=== PATIENT | female | born 1985 | race Caucasian/White ===

== ENCOUNTER 2016-10-07 11:57 | Emergency (ER) | payer OTHER ==
[2016-10-07 13:41] LABS: BASOPHIL 0.1 % (0-2); BILIRUBIN 1+ mg/dL (NEGATIVE); BLOOD TRACE-INTACT Ery/uL (NEGATIVE); CLARITY CLEAR (CLEAR); COLOR YELLOW (YELLOW); EOSINOPHIL 0 % (0-5); GLUCOSE (U) NORMAL (NORMAL); HCT 42.9 % (37.0-47.0); HGB 14.5 g/dl (12.5-16.0); KETONE (U) 2+ (MODERATE) mg/dL (NEGATIVE); LEUKOCYTES NEGATIVE Leu/uL (NEGATIVE); MCHC 33.8 g/dL (32.0-36.0); MCV 85.8 fL (78.0-100.0); MONOCYTE 4.5 % (0-12); MPV 10.8 fL (6.0-9.5); NEUTROPHIL 85.4 % (41-80); NITRITE NEGATIVE (NEGATIVE); PLT 257 K/uL (150-400); PROTEIN 2+ mg/dL (NEGATIVE); RDW 13.2 % (11.5-14.0); SPECIFIC GRAVITY 1.025 (1.001-1.030); UROBILINOGEN 0.2 mg/dL (0.2-1.0); WBC 14.2 K/uL (4.0-10.5)
[2016-10-07 13:48] LABS: BACTERIA 2+; URINARY RBC RARE
[2016-10-07 13:49] LABS: MUCOUS LARGE
[2016-10-07 13:50] LABS: INR 0.99 (0.9-1.2); PROTHROMBIN TIME 12.7 SECONDS (11.7-14.0); PTT 23.6 SECONDS (23.2-31.4)
[2016-10-07 13:54] LABS: AMPHETAMINES NEGATIVE (NEGATIVE); BARBITURATES NEGATIVE (NEGATIVE); BENZODIAZEPINES NEGATIVE (NEGATIVE); COCAINE NEGATIVE (NEGATIVE); MARIJUANA (THC) POSITIVE (NEGATIVE); METHADONE NEGATIVE (NEGATIVE); TRICYCLIC ANTIDEPRESSANT NEGATIVE (NEGATIVE)
[2016-10-07 14:11] LABS: ALBUMIN 5.5 g/dL (3.5-5.0); BILIRUBIN - TOTAL 0.6 mg/dL (0.1-1.0); CREATININE 0.6 mg/dL (0.5-1.0); GLOBULIN (CALCULATION) 2.9 g/dL (2.2-4.2); POTASSIUM 3.6 mmol/L (3.5-5.1); TOTAL PROTEIN 8.4 g/dL (6.4-8.3)
== END 2016-10-07 16:50 | disposition home or self-care (01) ==
LOC: FER 11:57
PROVIDERS: Internal Medicine
DX: R10.9 Unspecified abdominal pain (principal); R11.2 Nausea with vomiting, unspecified; F41.9 Anxiety disorder, unspecified; E03.9 Hypothyroidism, unspecified; Z79.899 Other long term (current) drug therapy
CPT/HCPCS: 36415; 80053; 80305; 81001; 83690; 85025; 85610; 85730; C9113; J2405; Q9967

== ENCOUNTER 2016-10-08 16:24 | Emergency (ER) | payer SELFPAY | END 2016-10-08 17:16 | disposition left against medical advice (07) | LOC: FER 16:24 | DX: R10.84 Generalized abdominal pain (principal); Z53.8 Procedure and treatment not carried out for other reasons ==

== ENCOUNTER 2016-12-12 05:43 | Emergency (ER) | payer OTHER ==
[2016-12-12 06:47] LABS: FT4 (FREE T4) 1.03 ng/dL (0.93-1.70); TSH (THYROID STIM HORMONE) 0.806 uIU/mL (0.270-4.200)
[2016-12-12 07:24] LABS: BILIRUBIN 1+ mg/dL (NEGATIVE); BLOOD TRACE-LYSED Ery/uL (NEGATIVE); CLARITY CLEAR (CLEAR); COLOR YELLOW (YELLOW); GLUCOSE (U) NORMAL (NORMAL); KETONE (U) 2+ (MODERATE) mg/dL (NEGATIVE); LEUKOCYTES NEGATIVE Leu/uL (NEGATIVE); NITRITE NEGATIVE (NEGATIVE); PROTEIN 2+ mg/dL (NEGATIVE); UROBILINOGEN 0.2 mg/dL (0.2-1.0)
[2016-12-12 07:37] LABS: BACTERIA 1+
[2016-12-12 07:38] LABS: AMPHETAMINES NEGATIVE (NEGATIVE); BARBITURATES NEGATIVE (NEGATIVE); BENZODIAZEPINES NEGATIVE (NEGATIVE); COCAINE NEGATIVE (NEGATIVE); MARIJUANA (THC) POSITIVE (NEGATIVE); METHADONE NEGATIVE (NEGATIVE); TRICYCLIC ANTIDEPRESSANT NEGATIVE (NEGATIVE)
== END 2016-12-12 07:10 | disposition home or self-care (01) ==
LOC: FER 05:43
PROVIDERS: Emergency Medicine
DX: F41.0 Panic disorder [episodic paroxysmal anxiety] (principal); R07.89 Other chest pain; E07.9 Disorder of thyroid, unspecified
CPT/HCPCS: 36415; 80305; 81001; 84439; 84443; 93005; J2060

== ENCOUNTER 2020-08-04 16:48 | Emergency (ER) | payer OTHER ==
[~2020-08-04 16:48] MED LIST: ATARAX25 MG PO; BENTYL10 MG PO; BUSPIRONE HCL15 MG PO; CARAFATE S500 MG/TSP PO; LEXAPRO20 MG PO; MIRALAX17 GM PO; ONDANSETRON ODT4 MG PO; PEPCID AC20 MG PO; PHENERGAN25 M1 PO; PROMETHEGA12.5 MG/SU PR; PROMETHEGAN25 MG PR; ZOFRAN ODT4 MG PO
[2020-08-04] MEDS ORDERED: ZOFRAN4 M1 PO (19:56)
[2020-08-04] MEDS ORDERED: ATARAX25 MG PO (19:56)
== END 2020-08-04 20:18 | disposition home or self-care (01) ==
LOC: FER 16:48
DX: F41.1 Generalized anxiety disorder (principal); Z79.899 Other long term (current) drug therapy
CPT/HCPCS: J2060; J2405; J7030

== ENCOUNTER 2020-08-06 09:15 | Emergency (ER) | payer OTHER ==
[~2020-08-06 09:15] MED LIST changes: +ZOFRAN4 M1 PO
[2020-08-06 09:48] LABS: BASOPHIL 0.1 % (0-2); EOSINOPHIL 0.1 % (0-5); HCT 42.5 % (37.0-47.0); HGB 13.7 g/dl (12.5-16.0); LYMPHOCYTE 13.1 % (15-48); MCH 28.8 pg (25.0-31.0); MCHC 32.2 g/dL (32.0-36.0); MCV 89.5 fL (78.0-100.0); MONOCYTE 4.3 % (0-12); MPV 10.8 fL (6.0-9.5); NEUTROPHIL 82.1 % (41-80); NRBC 0; PLT 223 K/uL (150-400); RBC 4.75 M/uL (4.20-5.40); RDW 12.5 % (11.5-14.0); WBC 10.6 K/uL (4.0-10.5)
[2020-08-06 09:57] LABS: BILIRUBIN NEGATIVE (NEGATIVE); BLOOD NEGATIVE Ery/uL (NEGATIVE); CLARITY HAZY (CLEAR); COLOR YELLOW (YELLOW); GLUCOSE (U) NORMAL (NORMAL); LEUKOCYTES NEGATIVE Leu/uL (NEGATIVE); NITRITE NEGATIVE (NEGATIVE); PROTEIN NEGATIVE (NEGATIVE); SPECIFIC GRAVITY 1.025 (1.001-1.030); UROBILINOGEN 0.2 mg/dL (0.2-1.0)
[2020-08-06 10:01] LABS: AMPHETAMINES POSITIVE (NEGATIVE); BARBITURATES NEGATIVE (NEGATIVE); ECSTASY (MDMA) NEGATIVE (NEGATIVE); MARIJUANA (THC) POSITIVE (NEGATIVE); METHADONE NEGATIVE (NEGATIVE); OPIATES NEGATIVE (NEGATIVE); OXYCODONE NEGATIVE (NEGATIVE)
[2020-08-06 10:36] LABS: ALBUMIN 4.1 g/dL (3.4-5.0); BILIRUBIN - TOTAL 0.5 mg/dL (0.2-1.0); BUN/CREAT RATIO (CALC) 19.7 RATIO; CREATININE 0.71 mg/dL (0.51-0.95); GLOBULIN (CALCULATION) 3.5 g/dL; POTASSIUM 3.5 mmol/L (3.5-5.1); TOTAL PROTEIN 7.6 g/dL (6.4-8.2)
== END 2020-08-06 12:50 | disposition home or self-care (01) ==
LOC: FER 09:15
PROVIDERS: Emergency Medicine
DX: F41.9 Anxiety disorder, unspecified (principal); R11.2 Nausea with vomiting, unspecified; Z87.19 Personal history of other diseases of the digestive system
CPT/HCPCS: 36415; 80053; 80305; 81003; 84484; 85025; 93005; J2060; J2405; J7030

== ENCOUNTER 2020-09-19 07:03 | Emergency (ER) | payer OTHER ==
[2020-09-19 06:50] LABS: BASOPHIL 0.1 % (0-2); EOSINOPHIL 0.8 % (0-5); HCT 39.7 % (37.0-47.0); LYMPHOCYTE 18.4 % (15-48); MCH 29.2 pg (25.0-31.0); MCHC 32.7 g/dL (32.0-36.0); MCV 89.2 fL (78.0-100.0); MONOCYTE 5.6 % (0-12); MPV 10.4 fL (6.0-9.5); NEUTROPHIL 74.7 % (41-80); NRBC 0; PLT 201 K/uL (150-400); RBC 4.45 M/uL (4.20-5.40); WBC 7.5 K/uL (4.0-10.5)
[2020-09-19 06:59] LABS: ALBUMIN 3.7 g/dL (3.4-5.0); BILIRUBIN - TOTAL 0.5 mg/dL (0.2-1.0); BUN/CREAT RATIO (CALC) 12.3 RATIO; CREATININE 0.57 mg/dL (0.51-0.95); GLOBULIN (CALCULATION) 3.5 g/dL; POTASSIUM 3.6 mmol/L (3.5-5.1); TOTAL PROTEIN 7.2 g/dL (6.4-8.2)
[2020-09-19 07:08] LABS: BILIRUBIN NEGATIVE (NEGATIVE); BLOOD NEGATIVE Ery/uL (NEGATIVE); CLARITY HAZY (CLEAR); COLOR YELLOW (YELLOW); GLUCOSE (U) NORMAL (NORMAL); LEUKOCYTES NEGATIVE Leu/uL (NEGATIVE); NITRITE NEGATIVE (NEGATIVE); PROTEIN NEGATIVE (NEGATIVE); SPECIFIC GRAVITY >=1.030 (1.001-1.030); UROBILINOGEN 0.2 mg/dL (0.2-1.0); pH 5.5 (5.0-9.0)
[2020-09-19] MEDS ORDERED: PHENERGAN25 M1 PO ×2 (08:31→09:41)
[2020-09-19] MEDS ORDERED: PEPCID AC20 MG PO ×2 (08:31→09:41)
== END 2020-09-19 09:40 | disposition home or self-care (01) ==
LOC: FER 07:03
PROVIDERS: Emergency Medicine Emergency Medical Services
DX: O99.891 Other specified diseases and conditions complicating pregnancy (principal); R10.13 Epigastric pain; Z87.891 Personal history of nicotine dependence; Z3A.00 Weeks of gestation of pregnancy not specified
CPT/HCPCS: 36415; 80053; 81003; 83690; 84702; 85025; 87339; 99284

== ENCOUNTER 2020-09-21 09:29 | Day surgery (SDCO) | payer OTHER ==
[2020-09-21 10:19] LABS: BASOPHIL 0.2 % (0-2); EOSINOPHIL 0.3 % (0-5); HCT 40.9 % (37.0-47.0); HGB 13.5 g/dl (12.5-16.0); MCH 29.5 pg (25.0-31.0); MCV 89.3 fL (78.0-100.0); MONOCYTE 3.8 % (0-12); MPV 10.4 fL (6.0-9.5); NEUTROPHIL 80.4 % (41-80); NRBC 0; PLT 222 K/uL (150-400); RBC 4.58 M/uL (4.20-5.40); RDW 12.8 % (11.5-14.0); WBC 10.7 K/uL (4.0-10.5)
[2020-09-21 10:29] LABS: INR 1.02 (0.9-1.2); PROTHROMBIN TIME 12.7 SECONDS (11.4-13.6); PTT 25.8 SECONDS (22.2-34.7)
[2020-09-21 10:30] LABS: D-DIMER 0.39 ug/mLFEU (0.00-0.41)
[2020-09-21 10:51] LABS: ALBUMIN 4.1 g/dL (3.4-5.0); BILIRUBIN - TOTAL 0.6 mg/dL (0.2-1.0); BUN/CREAT RATIO (CALC) 18.5 RATIO; C-REACTIVE PROTEIN 0.6 mg/dL (<=0.90); CREATININE 0.54 mg/dL (0.51-0.95); GLOBULIN (CALCULATION) 3.8 g/dL; MAGNESIUM 1.7 mg/dL (1.8-2.4); POTASSIUM 3.7 mmol/L (3.5-5.1); TOTAL PROTEIN 7.9 g/dL (6.4-8.2)
[2020-09-21 12:04] LABS: BILIRUBIN NEGATIVE (NEGATIVE); BLOOD NEGATIVE Ery/uL (NEGATIVE); CLARITY CLEAR (CLEAR); COLOR YELLOW (YELLOW); GLUCOSE (U) NORMAL (NORMAL); LEUKOCYTES NEGATIVE Leu/uL (NEGATIVE); NITRITE NEGATIVE (NEGATIVE); PROTEIN NEGATIVE (NEGATIVE); SPECIFIC GRAVITY 1.025 (1.001-1.030); UROBILINOGEN 0.2 mg/dL (0.2-1.0); pH 7.5 (5.0-9.0)
[2020-09-21 12:06] LABS: BARBITURATES NEGATIVE (NEGATIVE); ECSTASY (MDMA) NEGATIVE (NEGATIVE); MARIJUANA (THC) POSITIVE (NEGATIVE); METHADONE NEGATIVE (NEGATIVE); OPIATES NEGATIVE (NEGATIVE)
[2020-09-21 12:07] LABS: AMPHETAMINES NEGATIVE (NEGATIVE); OXYCODONE NEGATIVE (NEGATIVE)
[2020-09-21] MEDS ORDERED: ATARAX25 MG PO (18:36)
[2020-09-22 05:53] LABS: HCT 37.5 % (37.0-47.0); HGB 12.8 g/dl (12.5-16.0); MCH 29.5 pg (25.0-31.0); MCHC 34.1 g/dL (32.0-36.0); MCV 86.4 fL (78.0-100.0); MPV 10.2 fL (6.0-9.5); RBC 4.34 M/uL (4.20-5.40); RDW 12.5 % (11.5-14.0)
[2020-09-22 06:21] LABS: ALBUMIN 3.8 g/dL (3.4-5.0); BILIRUBIN - TOTAL 0.5 mg/dL (0.2-1.0); BUN/CREAT RATIO (CALC) 12.2 RATIO; CREATININE 0.49 mg/dL (0.51-0.95); GLOBULIN (CALCULATION) 3.3 g/dL; POTASSIUM 3.1 mmol/L (3.5-5.1); TOTAL PROTEIN 7.1 g/dL (6.4-8.2)
--- NOTE | 2020-09-22 16:10 | NUR ---
PT LIVES ALONE IS INDEPENDENT WITH CARE; PLEASE ADVISE OF DISCHARGE NEEDS
--- NOTE | 2020-09-22 18:45 | NUR ---
182 call into room patient wants to leave AMA. 183 DR. MATIAS NOTIFED THAT THE PATIENT IS REQUESTING TO LEAVE AMA. 184 EXPLAINED THE PROS AND CONS OF LEAVING AMA, PATIENT VOICED UNDERSTANDING OF THEIR DECISION. EXPLAINED THAT IDF SYMPTOMS RETURN PLEASE RETURN BACK TO THE ER. 184 SIGNED THE AMA PAPERS AND LEFT THE HOSPITAL. CONDITION WAS STABLE AT THE TIME THEY LEFT THE BUILDING.
== END 2020-09-22 18:44 | disposition left against medical advice (07) ==
LOC: FER 09:29 → FMS 14:17
PROVIDERS: Emergency Medicine; ADMIT Obstetrics & Gynecology
DX: O21.0 Mild hyperemesis gravidarum (principal); Z20.822 Contact with and (suspected) exposure to COVID-19
CPT/HCPCS: 36415; 36600; 76705; 76801; 80053; 80305; 81003; 82728; 82803; 83690; 83735; 84145; 84484; 84702; 85025; 85379; 85610; 85730; 86140; 87339; 93005; G0378; J2060; J2405; J2550; J2765; J7030; J7070; U0002

== ENCOUNTER 2020-09-28 17:52 | Day surgery (SDCO) | payer OTHER ==
[2020-09-28 18:34] LABS: BASOPHIL 0.2 % (0-2); EOSINOPHIL 0.1 % (0-5); HCT 36.7 % (37.0-47.0); HGB 12.4 g/dl (12.5-16.0); LYMPHOCYTE 10.7 % (15-48); MCH 29.4 pg (25.0-31.0); MCHC 33.8 g/dL (32.0-36.0); MONOCYTE 3.2 % (0-12); MPV 10.4 fL (6.0-9.5); NEUTROPHIL 85.5 % (41-80); NRBC 0; PLT 246 K/uL (150-400); RBC 4.22 M/uL (4.20-5.40); RDW 12.4 % (11.5-14.0); WBC 12.6 K/uL (4.0-10.5)
[2020-09-28 18:44] LABS: ALBUMIN 3.7 g/dL (3.4-5.0); BILIRUBIN - TOTAL 0.5 mg/dL (0.2-1.0); CREATININE 0.5 mg/dL (0.51-0.95); GLOBULIN (CALCULATION) 3.1 g/dL; POTASSIUM 3.5 mmol/L (3.5-5.1); TOTAL PROTEIN 6.8 g/dL (6.4-8.2)
[2020-09-28 20:19] LABS: BILIRUBIN NEGATIVE (NEGATIVE); BLOOD NEGATIVE Ery/uL (NEGATIVE); CLARITY CLEAR (CLEAR); COLOR YELLOW (YELLOW); GLUCOSE (U) NORMAL (NORMAL); LEUKOCYTES TRACE Leu/uL (NEGATIVE); NITRITE NEGATIVE (NEGATIVE); PROTEIN NEGATIVE (NEGATIVE); SPECIFIC GRAVITY 1.015 (1.001-1.030); UROBILINOGEN 0.2 mg/dL (0.2-1.0); pH 7.5 (5.0-9.0)
[2020-09-28 20:33] LABS: BACTERIA TRACE; URINARY RBC RARE
[2020-09-28 22:58] LABS: AMPHETAMINES NEGATIVE (NEGATIVE); BARBITURATES NEGATIVE (NEGATIVE); ECSTASY (MDMA) NEGATIVE (NEGATIVE); MARIJUANA (THC) POSITIVE (NEGATIVE); METHADONE NEGATIVE (NEGATIVE); OPIATES NEGATIVE (NEGATIVE); OXYCODONE NEGATIVE (NEGATIVE)
[2020-09-28] MEDS ORDERED: REGLAN5 MG PO (23:52)
[2020-09-29 06:37] LABS: BUN/CREAT RATIO (CALC) 8.9 RATIO; CREATININE 0.45 mg/dL (0.51-0.95); POTASSIUM 3.1 mmol/L (3.5-5.1)
[2020-09-30] MEDS ORDERED: BUSPIRONE HCL15 MG PO (09:26)
[2020-09-30] MEDS ORDERED: COLACE100 MG PO (09:26)
[2020-09-30] MEDS ORDERED: PHENERGAN25 M1 PO (09:28)
== END 2020-09-30 12:19 | disposition home or self-care (01) ==
LOC: FER 17:52 → FMS 22:43
PROVIDERS: Emergency Medicine; Emergency Medicine Emergency Medical Services; ADMIT Obstetrics & Gynecology
DX: O21.0 Mild hyperemesis gravidarum (principal); O26.891 Other specified pregnancy related conditions, first trimester; O99.341 Other mental disorders complicating pregnancy, first trimester; F41.9 Anxiety disorder, unspecified; R10.9 Unspecified abdominal pain; Z3A.01 Less than 8 weeks gestation of pregnancy
CPT/HCPCS: 36415; 80048; 80053; 80305; 81001; 84702; 85025; C9113; G0378; J1200; J2270; J2405; J2550; J2765; J7030

== ENCOUNTER 2021-01-19 18:01 | Emergency (ER) | payer OTHER ==
[~2021-01-19 18:01] MED LIST changes: +COLACE100 MG PO; +REGLAN5 MG PO
[2021-01-19] MEDS ORDERED: DOXYCYCLINE MO100 MG PO (19:48)
[2021-01-19] MEDS ORDERED: TRAMADOL HCL50 MG PO (19:48)
== END 2021-01-19 20:15 | disposition home or self-care (01) ==
LOC: FER 18:01
DX: N75.0 Cyst of Bartholin's gland (principal); F17.200 Nicotine dependence, unspecified, uncomplicated; F41.9 Anxiety disorder, unspecified; Z79.899 Other long term (current) drug therapy; Z87.19 Personal history of other diseases of the digestive system
CPT/HCPCS: 96372; J1170

== ENCOUNTER 2021-02-04 07:44 | Emergency (ER) | payer OTHER ==
[~2021-02-04 07:44] MED LIST changes: +DOXYCYCLINE MO100 MG PO; +TRAMADOL HCL50 MG PO
== END 2021-02-04 10:15 | disposition home or self-care (01) ==
LOC: FER 07:44
DX: F41.9 Anxiety disorder, unspecified (principal); F17.210 Nicotine dependence, cigarettes, uncomplicated
CPT/HCPCS: 99283